=== PATIENT | male | born 1950 | race Caucasian/White ===

== ENCOUNTER 2022-09-16 13:05 | Emergency (ER) | payer MEDICARE ==
[~2022-09-16] VITALS: Ht 185.4 cm; Wt 86.2 kg
[2022-09-16 14:16] LABS: ABG BASE EXCESS 1.6 mmol/L (-2.0-3.0); ABG HCO3 25.5 mmol/L (21.0-28.0); ABG OXYGEN SATURATION 96.7 % (95.0-99.0); ABG PCO2 38 mmHg (35-48)
[2022-09-16 14:51] LABS: BASOPHILS % (AUTO) 0.6 % (0.0-5.0); EOSINOPHILS % (AUTO) 1.2 % (0.0-8.0); HEMATOCRIT 34.3 % (42-54); LYMPHOCYTES % (AUTO) 7.9 % (21.0-51.0); MEAN CORPUSCULAR HEMOGLOBIN 24.2 pg (27.0-33.0); MEAN CORPUSCULAR HGB CONC 31.2 g/dL (32.0-36.0); MEAN CORPUSCULAR VOLUME 77.4 fL (79-99); MONOCYTES % (AUTO) 20.9 % (3.0-13.0); NEUTROPHILS % (AUTO) 67.7 % (40.0-77.0); PLATELET COUNT (AUTO) 214 K/uL (130-400); RED BLOOD CELL COUNT(AUTO) 4.43 MIL/uL (4.50-6.20); WHITE BLOOD COUNT (AUTO) 16.5 K/uL (4.8-10.8)
[2022-09-16 15:01] LABS: POTASSIUM 3.7 mmol/L (3.5-5.1)
[2022-09-16 15:02] LABS: INR 1.18 (0.85-1.15); PROTHROMBIN TIME 12.7 SEC (9.6-11.6)
[2022-09-16 15:03] LABS: PARTIAL THROMBOPLASTIN TIME 37.4 SEC (26.3-35.5)
[2022-09-16 15:05] LABS: ALBUMIN 2.7 g/dL (3.5-5.0); TOTAL PROTEIN, SERUM 8.4 g/dL (6.0-8.3)
[2022-09-16 15:34] LABS: B-TYPE NATRIURETIC PEPTIDE 81 pg/mL (0-100)
[2022-09-16] MEDS ORDERED: CEFTRIAXONE 1G VIAL IVP ONE (16:00)
[2022-09-16] MEDS ORDERED: CEFTRIAXONE 1G VIAL ONE (16:02)
[2022-09-16 16:05] VITALS: BP 111/64
[2022-09-16] MEDS ORDERED: ALBU90AE2 IH (16:24)
[2022-09-16] MEDS ORDERED: LEVO750T68 PO (16:24)
== END 2022-09-16 17:15 | disposition home or self-care (01) ==
LOC: EDH 13:05
DX: J20.9 Acute bronchitis, unspecified (principal); J18.9 Pneumonia, unspecified organism; I48.91 Unspecified atrial fibrillation; K21.9 Gastro-esophageal reflux disease without esophagitis; E78.00 Pure hypercholesterolemia, unspecified; Z20.822 Contact with and (suspected) exposure to COVID-19; Z98.890 Other specified postprocedural states
CPT/HCPCS: 99285; 82550; 84484; 80053; 82803; 83880; 85025; 85610; 85730; 87040 ×2; 87880; 87804 ×2; 83605; 36415; 87635; 71045; 96374; 93005; C9803; J0696

== ENCOUNTER 2022-09-22 13:55 | Emergency (ER) | payer MEDICARE, OTHER ==
[~2022-09-22] VITALS: Ht 185.4 cm; Wt 86.2 kg
[~2022-09-22 13:55] MED LIST: ALBU90AE2 IH; LEVO750T68 PO
[2022-09-22 14:41] LABS: BASOPHILS % (AUTO) 0.6 % (0.0-5.0); EOSINOPHILS % (AUTO) 0.9 % (0.0-8.0); HEMATOCRIT 37.5 % (42-54); LYMPHOCYTES % (AUTO) 7.7 % (21.0-51.0); MEAN CORPUSCULAR HGB CONC 31.2 g/dL (32.0-36.0); MEAN CORPUSCULAR VOLUME 76.8 fL (79-99); NEUTROPHILS % (AUTO) 67.7 % (40.0-77.0); PLATELET COUNT (AUTO) 239 K/uL (130-400); RED BLOOD CELL COUNT(AUTO) 4.88 MIL/uL (4.50-6.20); RED CELL DISTRIBUTION WIDTH 17.1 % (11.0-15.5); WHITE BLOOD COUNT (AUTO) 19.1 K/uL (4.8-10.8)
[2022-09-22 15:05] LABS: CREATININE 1.2 mg/dL (0.5-1.5); POTASSIUM 3.9 mmol/L (3.5-5.1)
[2022-09-22 15:11] LABS: ALBUMIN 2.8 g/dL (3.5-5.0); TOTAL PROTEIN, SERUM 9.1 g/dL (6.0-8.3)
[2022-09-22 16:20] VITALS: BP 116/65
[2022-09-22] MEDS ORDERED: BENZONATATE 100 MG CAPSULE PO ONE (16:56)
[2022-09-22] MEDS ORDERED: SOLU-MEDROL 125MG VIAL ONE (16:56)
[2022-09-22] MEDS ORDERED: BENZONATATE 100 MG CAPSULE PO SCH (17:00)
[2022-09-22] MEDS ORDERED: SOLU-MEDROL 125MG VIAL IVP ONE (17:00)
[2022-09-22] MEDS ORDERED: IPRATROPIUM/ALBUTEROL SULFATE 3 ML SOLUTION IH ONE (17:00)
[2022-09-22 17:13] LABS: MAGNESIUM 2.1 mg/dL (1.80-2.40)
[2022-09-22] MEDS ORDERED: ALBUTEROL 0.083% 2.5 MG/3 ML INH IH ONE (18:00)
[2022-09-22] MEDS ORDERED: IPRATROPIUM 0.5 MG/2.5 ML INH IH ONE (18:00)
[2022-09-22] MEDS ORDERED: BENZ-39 PO (18:46)
[2022-09-22] MEDS ORDERED: PRED20TA3 PO (18:46)
== END 2022-09-22 19:09 | disposition home or self-care (01) ==
LOC: EDH 13:55
DX: J18.9 Pneumonia, unspecified organism (principal); G93.31 Postviral fatigue syndrome; I48.91 Unspecified atrial fibrillation; Z20.822 Contact with and (suspected) exposure to COVID-19; Z79.899 Other long term (current) drug therapy
CPT/HCPCS: 99285; 96374; 71045; 87635; 83735; 84484; 80053; 83880; 85025; 87040 ×2; 87880; 87804 ×2; 83605; 36415; 93005; 94640; C9803; J2930